=== PATIENT | female | born 2000 ===

== ENCOUNTER 2020-02-05 21:29 | Outpatient (CLI) | payer OTHER ==
[2020-02-05 22:13] VITALS: BP 118/71
== END 2020-02-05 22:55 | disposition home or self-care (01) ==
LOC: TRG 21:29 → APU 21:39 → TRG 22:55
PROVIDERS: ATTEND Obstetrics & Gynecology
DX: O47.1 False labor at or after 37 completed weeks of gestation (principal); Z3A.38 38 weeks gestation of pregnancy
CPT/HCPCS: 59025

== ENCOUNTER 2020-02-08 17:08 | Inpatient (IN) | payer OTHER ==
[2020-02-08] MEDS ORDERED: AMPICILLIN/NS 2 GM/100 ML 2 GM/100 ML BAG IV ONE (18:03)
[2020-02-08] MEDS ORDERED: ePHEDrine SULFATE 50 MG/1 ML INJ IV PRN ×2 (18:03→21:20)
[2020-02-08] MEDS ORDERED: fentaNYL 100 MCG/2 ML INJ IV PRN (18:03)
[2020-02-08] MEDS ORDERED: TERBUTALINE 1 MG/1 ML INJ SUB-Q PRN (18:03)
[2020-02-08] MEDS ORDERED: MINERAL OIL 30 ML ORAL LIQD PO PRN (18:03)
[2020-02-08] MEDS ORDERED: LIDOCAINE (2%) 20 MG/1 ML VIAL 20 ML MDV INFILTRATI ONE ×2 (18:03→22:58)
--- NOTE | 2020-02-08 18:11 | History and Physical Report ---
History of Present Illness Date of examination: 02/08/20 Date of admission: 02/08/2020 Chief complaint: Contractions History of present illness: 19 year old female presents complaining of contractions all day. Patient states she receives care at [facility] but no records are available. Self reported EDC: 02/19/2020. Patient denies complications with this . labs and US have been ordered upon admission. Past History Past Medical History: no pertinent history Past Surgical History: appendectomy, other (hand surgery) [facility] History: denies: chlamydia, gonorrhea, hepatitis B, hepatitis C, herpes, HIV, syphilis, trichomonas Family/Genetic History: diabetes Social history: lives with family, full code. denies: smoking, alcohol abuse, prescription drug abuse, IV drug use - Obstetrical History Expected Date of Delivery: 02/19/20 Actual Gestation: 38 Week(s) 3 Day(s) : 2 Para: 1 Hx # Term Pregnancies: 1 Number of Pregnancies: 0 Spontaneous Abortions: 0 Induced : 0 Number of Living Children: 1 Medications and Allergies Allergies Allergy/AdvReac Type Severity Reaction Status Date / Time No Known Allergies Allergy Verified 02/08/20 18:09 Active Meds: Active Medications Ephedrine Sulfate (Ephedrine Sulfate) 10 mg IV Q2M PRN PRN Reason: Hypotension Fentanyl (Sublimaze) 100 mcg IV Q2H PRN PRN Reason: Pain,Severe (7-10) LABOR PAIN Lactated Ringer's (Lactated Ringers) 1,000 mls @ 125 mls/hr IV DIRECT BIANKA Ampicillin Sodium (Ampicillin/Ns 2 Gm/100 Ml) 2 gm in 100 mls @ 100 mls/hr IV ONCE ONE; Protocol Stop: 02/08/20 19:02 Ampicillin Sodium (Ampicillin/Ns 1 Gm/50 Ml) 1 gm in 50 mls @ 100 mls/hr IV Q4HR BIANKA; Protocol Lidocaine (Xylocaine 2%) 20 ml INFILTRATI ONCE ONE Stop: 02/08/20 18:04 Mineral Oil (Mineral Oil) 30 ml PO QHS PRN PRN Reason: Constipation Terbutaline Sulfate (Brethine) 0.25 mg SUB-Q ONCE PRN PRN Reason: Hyperstimulation/Hypertonicity Review of Systems All systems: negative (contractions) - Vital Signs Vital signs: Vital Signs Pulse BP 91 H 123/79 02/08/20 17:30 02/08/20 17:30 Temp Pulse Resp BP Pulse Ox 91 H 123/79 02/08/20 17:30 02/08/20 17:30 - Physical Exam Abdomen: Positive: normal appearance, soft. Negative: distention, tenderness, guarding, rigidity Genitourinary (Female): Positive: normal external genitalia, normal perenium. Negative: perineal/vulvar lesions Vagina: Positive: normal moisture Uterus: Positive: enlarged. Negative: tender Anus/Rectum: Positive: normal perianal skin Extremities: Positive: normal. Negative: tenderness, edema - Obstetrical FHR: category 1 Uterine Contraction Monitor Mode: External Cervical Dilatation: 4 Cervical Effacement Percentage: 80 station: -2 Uterine Contraction Pattern: Regular Uterine Contraction Intensity: Moderate Results Result Diagrams: 02/08/20 18:03 All other labs normal. Assessment and Plan A: at 38 3/7 weeks gestation. Labor. GBS unknown. No records. P: Admit. EFM. US/labs. GBS prophylaxis. Request records.
[2020-02-08 18:27] LABS: Hematocrit 31.3 % (30.3-42.9); Hemoglobin 9.6 gm/dl (10.1-14.3); Mean Corpuscular HGB Conc 31 % (30-34); Platelet Count 249 K/mm3 (140-440); Red Blood Count 4.56 M/mm3 (3.65-5.03); Red Cell Distribution Width 16.2 % (13.2-15.2)
[2020-02-08 18:29] LABS: Mean Corpuscular Volume 69 fl (79-97)
[2020-02-08] MEDS: LACTATED RINGERS 1,000 ML IV SCH ×2 (18:40→20:38)
[2020-02-08 18:51] LABS: Hepatitis C Virus Antibody Non-Reactive (NonReactive)
--- NOTE | 2020-02-08 20:33 | Event Note ---
Date: 02/08/20 Was able to access patient's records via computer. labs are as follows: O+, antibody screen negative, rubella immune, hepatitis B surface antigen negative, HIV negative, RPR nonreactive, gonorrhea negative, chlamydia negative, trichomonas negative, GBS negative, HSV 2 negative, 1 hour sugar test 76, panorama low risk male. LMP: 05/15/2019. EDC: 02/19/2020 (based on LMP and confirmed by US). Problems during : anemia, UTI (treated), late entry care. Saw [facility] for US as well during the .
[2020-02-08] MEDS ORDERED: DEXMEDETOMIDINE 200 MCG/2 ML VIAL IV ONE (20:46)
[2020-02-08] MEDS ORDERED: NALOXONE 2 MG/2 ML INJ IV PRN (21:20)
--- NOTE | 2020-02-08 21:23 | Anesthesia Consultation ---
Anesthesia Consult and Med Hx Date of service: 02/08/20 - Airway Anesthetic Teeth Evaluation: Good ROM Head & Neck: Adequate Mental/Hyoid Distance: Adequate Mallampati Class: Class II Intubation Access Assessment: Probably Good - Pulmonary Exam CTA: Yes - Cardiac Exam Cardiac Exam: RRR - Pre-Operative Health Status ASA Pre-Surgery Classification: ASA2 Proposed Anesthetic Plan: Epidural - Pre-Anesthesia Comment Pre-Anesthesia Comments: appy, hand surgery. No anesthesia complications - Pulmonary Hx Smoking: No Hx Asthma: No Hx Respiratory Symptoms: No SOB: No COPD: No Home Oxygen Therapy: No Hx Pneumonia: No Hx Sleep Apnea: No - Cardiovascular System Hx Hypertension: No Hx Coronary Artery Disease: No Hx Heart Attack/AMI: No Hx Angina: No Hx Percutaneous Transluminal Coronary Angioplasty (PTCA): No Hx Cardia Arrhythmia: No Hx Pacemaker: No Hx Internal Defibrillator: No Hx Valvular Heart Disease: No Hx Heart Murmur: No Hx Peripheral Vascular Disease: No - Central Nervous System Hx Neuromuscular Disorder: No Hx Seizures: No CVA: No Hx Back Pain: No Hx Psychiatric Problems: No - Gastrointestinal Hx Ulcer: No Hx Gastroesophageal Reflux Disease: No - Endocrine Hx Renal Disease: No Hx End Stage Renal Disease: No Hx Cirrhosis: No Hx Liver Disease: No Hx Insulin Dependent Diabetes: No Hx Non-Insulin Dependent Diabetes: No Hx Thyroid Disease: No Hx Hypothyroidism: No Hx Hyperthyroidism: No - Hematic Hx Anemia: No Hx Sickle Cell Disease: No - Other Systems Hx Alcohol Use: No Hx Substance Use: No Hx Cancer: No Hx Obesity: No
[2020-02-08] MEDS ORDERED: fentaNYL-BUPIV 2 MCG/ML-0.125% 200 MCG/100 ML BAG EPIDURAL SCH (22:00)
--- NOTE | 2020-02-08 22:03 | Progress Note ---
Labor Epidural - Labor Epidural Start Time: 20:49 Stop Time: 21:01 Performed by:: PRO BEATTY Procedure: Patient is requesting a laboring epidural for laboring pain. Patient IDed, H&P reviewed, all questions and concerns were answered, and consent was signed. Timeout was performed at bedside. Patient in sitting position. Sterile prep and drape was performed. [3] ml of 1% lidocaine skin wheal at L[3]- L [4]. 18- gauge Tuohy epidural needle was advanced to loss of resistance with air technique to 4cm. Negative CSF negative blood via Tuohy needle. #27g Spinal needle clear, free flowing CSF, Pecedex 10 mcg. Epidural catheter advanced to [10] centimeters. [negative] Aspiration [negative] test dose. Sterile dressing applied. Patient tolerated procedure.
[2020-02-08] MEDS ORDERED: AMPICILLIN/NS 1 GM/50 ML 1 GM/50 ML BAG IV SCH (22:08)
--- NOTE | 2020-02-08 22:14 | Ultrasound Report ---
ULTRASOUND OBSTETRIC LIMITED INDICATION / CLINICAL INFORMATION: Location of placenta, EDC/EGA. Clinical Gestational Age (GA): 38.3 weeks.days COMPARISON: None available. FINDINGS: HEART RATE (beats per minute): 130 PRESENTATION: Cephalic. PLACENTA: Anterior grade 1. Free of the os. ADDITIONAL FINDINGS: None. IMPRESSION: 1. Single living intrauterine gestation in cephalic position. 2. Placental location is anterior and free of the os. Signer Name: Chucho Bonilla MD Signed: 02/08/2020 10:09 PM Workstation Name: [id number]
[2020-02-08] MEDS ORDERED: OXYTOCIN DRIP 30,000 MILLIUNITS/500 ML BAG IV ONE (22:58)
[2020-02-08] MEDS ORDERED: HYDROcodone/ACETAMINOPHEN 5-325 MG TAB PO PRN (23:27)
[2020-02-08] MEDS ORDERED: LANOLIN/ZINC/DIMETHICONE (LANSINOH) 7 GM TP PRN (23:27)
[2020-02-08] MEDS ORDERED: MAGNESIUM HYDROXIDE (MOM) ORAL LIQD UDC PO PRN (23:27)
[2020-02-08] MEDS ORDERED: WITCH HAZEL/ GLYCERIN PAD TP PRN (23:27)
--- NOTE | 2020-02-08 23:37 | Procedure Note ---
OB Delivery Note - Delivery Date of Delivery: 02/08/20 Surgeon: SHAUNA RAMSAY Estimated blood loss: 200cc - Vaginal Delivery presentation: vertex Delivery position: OA Intrapartum events: none Delivery induction: none Delivery monitor: external FHT, external uterine Route of delivery: Delivery placenta: spontaneous Delivery cord: 3 umbilical vessels Episiotomy: none Delivery laceration: none Anesthesia: epidural Delivery comments: Spontaneous vaginal delivery at 23:08 of liveborn male infant weighing 6 lb. 13.7 oz. over intact perineum with apgars of 8/9. Baby placed skin to skin with mom immediately after delivery. Spontaneous cry and respirations. Baby dried and suctioned with bulb syringe. 3 vessel cord double clamped and cut. Cord blood obtained. Spontaneous delivery of intact placenta and membranes by rizo mechanism. EBL 200 cc. Pitocin to IV fluids after delivery of placenta. Fundus firm and midline. No lacerations noted. Vaginal sweep negative. Sponge count correct. Mother and baby stable.
[2020-02-09] MEDS ORDERED: OXYTOCIN DRIP 30,000 MILLIUNITS/500 ML BAG IV ONE (00:37)
[2020-02-09 02:03] LABS: Hematocrit 26.6 % (30.3-42.9); Hemoglobin 8.4 gm/dl (10.1-14.3)
--- NOTE | 2020-02-09 07:13 | Post Anesthesia Evaluation ---
- Post Anesthesia Evaluation Patient Participated: Yes Airway Patent: Yes Stable Respiratory Function: Yes Nausea/Vomiting: No Temp > 96.8F: Yes Pain Manageable: Yes Adequeate Hydration: Yes Anesthesia Complications: No Block Receding Appropriately: Yes Patient on Ventilator: No
[2020-02-09] MEDS: IBUPROFEN 600 MG TAB PO SCH ×3 (07:52→21:51)
[2020-02-09] MEDS ORDERED: medroxyPROGESTERone ACETATE 150 MG/ML SYRINGE IM NR (10:58)
--- NOTE | 2020-02-09 11:03 | Progress Note ---
Assessment and Plan A: PP Day 1 Asymptomatic Anemia P: Follow Routine PP orders Ferrous Sulfate PO 325mg BID Depo Provera 150mg IM x 1 dose prior to discharge Discharge in the AM RTO in 6 weeks Subjective - Subjective Date of service: 02/09/20 Patient reports: appetite normal, voiding normally, pain well controlled, flatus, ambulating normally : doing well, bottle feeding (and ) Objective - Vital Signs Latest vital signs: Vital Signs Temp Pulse Resp BP BP Pulse Ox 02/09/20 07:50 97.7 F 70 18 111/70 02/09/20 03:35 98.3 F 88 16 109/70 88 02/09/20 02:58 96 H 99 02/09/20 02:53 83 99 02/09/20 02:48 94 H 103/60 99 02/09/20 02:43 100 H 99 02/09/20 02:38 93 H 99 02/09/20 02:34 88 98/56 02/09/20 02:33 88 99 02/09/20 02:28 93 H 99 02/09/20 02:23 81 99 02/09/20 02:18 94 H 105/66 99 02/09/20 02:13 91 H 99 02/09/20 02:08 105 H 99 02/09/20 02:03 77 99/56 99 02/09/20 01:58 80 99 02/09/20 01:53 81 99 02/09/20 01:48 77 100/57 99 02/09/20 01:43 86 99 02/09/20 01:38 95 H 99 02/09/20 01:36 93 H 100/57 02/09/20 01:33 95 H 99 02/09/20 01:28 84 99 02/09/20 01:23 83 99 02/09/20 01:19 83 93/51 02/09/20 01:18 83 99 02/09/20 01:13 81 99 02/09/20 01:08 94 H 105/62 98 02/09/20 00:58 86 98 02/09/20 00:53 102 H 98 02/09/20 00:48 96 H 83/53 99 02/09/20 00:43 92 H 99 02/09/20 00:38 94 H 99 02/09/20 00:34 94 H 91/52 02/09/20 00:33 93 H 98 02/09/20 00:28 84 99 02/09/20 00:23 85 99 02/09/20 00:19 94 H 101/51 02/09/20 00:18 92 H 99 02/09/20 00:13 98 H 99 02/09/20 00:08 91 H 99 02/09/20 00:03 92 H 116/59 99 02/08/20 23:58 100 H 99 02/08/20 23:53 93 H 99 02/08/20 23:48 92 H 111/58 99 02/08/20 23:43 94 H 99 02/08/20 23:38 95 H 99 02/08/20 23:34 92 H 108/56 02/08/20 23:33 92 H 99 02/08/20 23:28 89 99 02/08/20 23:23 93 H 99 02/08/20 23:18 94 H 99 02/08/20 23:13 84 99 02/08/20 23:09 131 H 140/106 02/08/20 23:08 146 H 100 02/08/20 23:03 86 100 02/08/20 22:58 105 H 100 02/08/20 22:54 66 108/62 02/08/20 22:53 63 100 02/08/20 22:48 62 100 02/08/20 22:43 65 100 02/08/20 22:40 61 95/55 02/08/20 22:38 65 100 02/08/20 22:33 75 99 02/08/20 22:28 79 99 02/08/20 22:23 58 L 95/59 99 02/08/20 22:18 71 99 02/08/20 22:13 78 99 02/08/20 22:08 84 92/51 98 02/08/20 22:04 77 91/53 02/08/20 22:03 76 98 02/08/20 21:59 81 88/52 02/08/20 21:58 78 98 02/08/20 21:55 83 83/54 02/08/20 21:53 71 98 02/08/20 21:50 79 90/55 02/08/20 21:48 71 98 02/08/20 21:45 68 104/58 02/08/20 21:43 90 92/53 99 02/08/20 21:38 80 97/55 98 02/08/20 21:33 104 H 96/55 98 02/08/20 21:28 85 102/63 99 02/08/20 21:24 93 H 103/65 02/08/20 21:23 90 99 02/08/20 21:19 93 H 103/56 02/08/20 21:18 87 100 02/08/20 21:13 90 100 02/08/20 21:12 111 H 109/66 02/08/20 21:10 107 H 111/69 02/08/20 21:08 86 121/78 100 02/08/20 21:07 98 H 114/62 02/08/20 21:04 88 114/70 02/08/20 21:03 84 100 02/08/20 21:02 80 118/73 02/08/20 21:00 94 H 116/71 02/08/20 20:58 86 126/79 100 02/08/20 20:56 96 H 122/78 02/08/20 20:54 90 127/81 02/08/20 20:53 90 100 02/08/20 20:52 102 H 121/75 02/08/20 20:50 87 120/75 02/08/20 20:48 99 H 100 02/08/20 20:43 92 H 100 02/08/20 20:38 77 100 02/08/20 20:33 85 99 02/08/20 20:28 80 100 02/08/20 20:23 83 100 02/08/20 20:18 77 100 02/08/20 20:13 89 100 02/08/20 20:08 91 H 100 02/08/20 20:03 78 100 02/08/20 19:58 94 H 100 02/08/20 19:53 81 99 02/08/20 19:48 89 99 02/08/20 19:43 102 H 99 02/08/20 19:38 106 H 99 02/08/20 19:33 90 100 02/08/20 19:28 91 H 99 02/08/20 19:23 86 100 02/08/20 19:22 98.9 F 95 H 16 116/74 100 02/08/20 19:18 89 99 02/08/20 19:13 89 99 02/08/20 19:08 87 99 02/08/20 19:03 93 H 100 02/08/20 18:58 94 H 99 02/08/20 18:53 93 H 100 02/08/20 18:48 101 H 99 02/08/20 18:43 89 99 02/08/20 18:41 90 116/74 02/08/20 18:39 98.6 F 85 14 116/74 99 02/08/20 18:38 90 99 02/08/20 18:33 89 99 02/08/20 17:30 91 H 123/79 Intake and Output 02/08/20 02/09/20 02/09/20 22:59 06:59 14:59 Intake Total 245.833 Output Total 600 300 500 Balance -354.167 -300 -500 Intake: IV 245.833 Lactated Ringers 1,000 ml 245.833 @ 125 mls/hr IV DIRECT BIANKA Rx#:[id number] Output: Urine 600 300 500 Indwelling Catheter 600 Self-Catheterization 200 Void 100 500 Other: Total, Output Amount 600 100 500 # Voids Void 1 Weight 67.132 kg Estimated Blood Loss 200 - Exam Breasts: Present: normal Cardiovascular: Present: Regular rate Lungs: Present: Clear to auscultation, Normal air movement Abdomen: Present: normal appearance, soft, normal bowel sounds Uterus: Present: normal, firm, fundal height below umbilicus Extremities: Present: normal - Labs Labs: Abnormal lab results 02/08/20 02/09/20 Range/Units 18:03 01:25 WBC 11.3 H (4.5-11.0) K/mm3 Hgb 9.6 L 8.4 L (10.1-14.3) gm/dl Hct 26.6 L (30.3-42.9) % MCV 69 L (79-97) fl MCH 21 L (28-32) pg RDW 16.2 H (13.2-15.2) %
--- NOTE | 2020-02-09 11:05 | Discharge Summary ---
Providers - Providers Date of Admission: 02/08/20 18:12 Date of discharge: 02/10/20 Attending physician: RAKEL JACKSON MD Primary care physician: SHALINI GRANDE JR, MD Hospitalization Reason for admission: active labor Delivery: Episiotomy: none Laceration: none Other procedures: none complications: none Discharge diagnosis: IUP at term delivered [place] baby: male Condition at discharge: Good Disposition: DC-01 TO HOME OR SELFCARE Plan - Provider Discharge Summary Activity: routine, no sex for 6 weeks, no heavy lifting 4 weeks, no strenuous exercise Diet: routine Instructions: routine Additional instructions: [] Smoking cessation referral if applicable(refer to patient education folder for contact #) [] Refer to [facility] Book[facility] Call your doctor immediately for: * Fever > 100.5 * Heavy vaginal bleeding ( >1 pad per hour) * Severe persistent headache * Shortness of breath * Reddened, hot, painful area to leg or breast * Drainage or odor from incision. * Keep incision clean and dry at all times and follow doctor's instructions regarding bathing/showering - Follow up plan Follow up: SHALINI GRANDE JR, MD [Primary Care Provider] - 6 Weeks
[2020-02-09] MEDS: FERROUS SULFATE 325 MG TAB PO SCH ×2 (14:18→21:51)
[2020-02-09 14:56] LABS: Hematocrit 27.9 % (30.3-42.9); Hemoglobin 8.9 gm/dl (10.1-14.3)
[2020-02-10] MEDS: IBUPROFEN 600 MG TAB PO SCH ×2 (05:43)
[2020-02-10 11:42] VITALS: BP 121/77
== END 2020-02-10 13:39 | disposition home or self-care (01) | DRG 775 ==
LOC: TRG 17:08 → APU 17:09 → TRG 18:11 → LD 18:12 → OB 02-09 03:23
PROVIDERS: ADMIT Obstetrics & Gynecology; ATTEND Obstetrics & Gynecology
PROC: 10E0XZZ Delivery of Products of Conception, External Approach (ICD-10-PCS; principal; 2020-02-08)
PROC: 3E0R3BZ Introduction of Anesthetic Agent into Spinal Canal, Percutaneous Approach (ICD-10-PCS; 2020-02-08)
PROC: 00HU33Z Insertion of Infusion Device into Spinal Canal, Percutaneous Approach (ICD-10-PCS; 2020-02-08)
DX: O99.02 Anemia complicating childbirth (principal); Z37.0 Single live birth; D64.9 Anemia, unspecified; Z20.828 Contact with and (suspected) exposure to other viral communicable diseases; Z3A.38 38 weeks gestation of pregnancy
CPT/HCPCS: 36415; 59025; 76816; 85014; 85018; 85027; 86592; 86706; 86762; 86803; 86850; 86900; 86901; 87806; G0378; J0290; J1050; J2590; J3010; J3490; J7120; U0003-CS